=== PATIENT | male | born 1965 | race Hispanic/Latino ===

== ENCOUNTER 2023-04-26 21:56 | Emergency (ER) | payer OTHER ==
[~2023-04-26] VITALS: Ht 167.6 cm; Wt 86.2 kg
[2023-04-26 21:57] VITALS: BP 153/92; PULSE 69; RESP 16
[2023-04-27] MEDS ORDERED: CYCLOBENZAPRINE HCL 10 MG TABLET PO ONE
[2023-04-27] MEDS ORDERED: CYCL10TA16 PO (01:50)
[2023-04-27] MEDS ORDERED: MELO-106 PO (01:50)
== END 2023-04-27 02:02 | disposition home or self-care (01) ==
LOC: EDH 21:56
DX: S16.1XXA Strain of muscle, fascia and tendon at neck level, initial encounter (principal); M62.838 Other muscle spasm; X58.XXXA Exposure to other specified factors, initial encounter; Y93.89 Activity, other specified; Y92.89 Other specified places as the place of occurrence of the external cause; Y99.8 Other external cause status
CPT/HCPCS: 72040; 84484; 93005